=== PATIENT | female | born 1960 | race Caucasian/White ===

== ENCOUNTER 2022-06-02 00:45 | Inpatient (IN) | payer MEDICARE, OTHER ==
[~2022-06-02] VITALS: Ht 165.1 cm; Wt 63.5 kg
--- NOTE | 2022-06-02 01:00 | NUR ---
Dr. Motley at bedside for MSE.
--- NOTE | 2022-06-02 02:30 | NUR ---
Pt medically cleared by Dr. Motley.
[2022-06-02] MEDS ORDERED: POTASSIUM BICARBONATE/CIT AC 25 MEQ TABLET.EFF PO ONE (02:45)
[2022-06-02] MEDS ORDERED: POTASSIUM BICARBONATE/CIT AC 25 MEQ TABLET.EFF ONE (02:48)
--- NOTE | 2022-06-02 04:34 | NUR ---
Report given to [facility].
[2022-06-02] MEDS ORDERED: MAGNESIUM HYDROXIDE 30 ML LIQUID UDC PO PRN (05:15)
[2022-06-02] MEDS ORDERED: MAG HYDROX/AL HYDROX/SIMETH 30 ML LIQUID UDC PO PRN (05:15)
[2022-06-02] MEDS ORDERED: LORAZEPAM 1 MG TABLET PO PRN (05:15)
[2022-06-02] MEDS ORDERED: ACETAMINOPHEN 325 MG TABLET PO PRN (05:15)
[2022-06-02] MEDS ORDERED: TEMAZEPAM 7.5 MG CAPSULE PO PRN (05:15)
[2022-06-02 05:21] VITALS: BP 99/52
[2022-06-02] MEDS ORDERED: [UNRECOGNIZED DRUG - REMARK] (05:29)
--- NOTE | 2022-06-02 06:59 | NUR ---
Received to care, from the Emergency Room, on a 72 hour hold for gravely disabled. According to the hold, and ER physicians note, she is homeless. Was found at [employer] rambling and delusional, approaching a family and saying that the child was being kidnaped. She attempted to AWOL from police custody multiple times, and unable to say where she gets snf, or where she receives food. Upon face to face evaluation, she has poor insight into her condition, with no viable self care plan. Her speech was tangential, appears distracted by internal stimuli. Is hyper catholic, offering to pray for people and offer them salvation. Pt was advised of her hold, and given the patients rights handbook.
--- NOTE | 2022-06-02 09:26 | NUR ---
CHEST XRAY ORDERED STATUS "PRE ER" WHEN IN ER. WE ARE NOT ABLE TO SHOOT XRAYS UNDER "PRE ER" STATUS ORDERS. PATIENT NEEDED TO BE IN "REG ER" TO BE ABLE TO SHOOT XRAYS OR CTS. IF CHEST XRAY NEEDS TO BE DONE, REORDER. PATIENT IS ON FLOOR.
[2022-06-02 21:00] VITALS: BP 101/62
--- NOTE | 2022-06-02 22:01 | NUR ---
Dr Presley visited the patient; spoke with pt and new orders made; Patient REFUSED to sign consent for her Zyprexa.
[2022-06-03 05:06] VITALS: BP 102/52
--- NOTE | 2022-06-03 05:59 | NUR ---
Pt slept for 8.5 hrs; now awake and asking for coffee; needs attended; safety maintained
[2022-06-03] MEDS: OLANZAPINE 5 MG TABLET PO SCH ×3 (08:53→21:00)
--- NOTE | 2022-06-03 09:00 | NUR ---
Pt refused her Zyprexa explained the purpose of medication but pt continues to refuse med. Pt cooperative with care. Pt has good appetite. 1:1 sitter at bedside. noted right foot big toe sole discoloration. Encouraged pt to float patricia feet when able. Pt agreeable with plan of care. Call light is within reach
--- NOTE | 2022-06-03 14:36 | NUR ---
Pt is in no acute distress. Report given to Maira Noble. Pt is in no acute distress.
--- NOTE | 2022-06-03 16:05 | NUR ---
Received an overflow psych patient from third floor around 15:30. Patient report given by Eugene RN. Pt. is A/O X 3 to person, place. Pt. is cooperative with nursing care, talkative, argumentative about her 5150 status on GD "I need to see this doctor who is responsible for me to end up in a Psych unit. I don't belong here" Pt. holds ends today at 21:15, Dr. Presley is aware of it. Patient showered as soon as she got in the unit. Patient ambulates independently. Self care. Active listening provided. Fall and safety precautions implemented.
[2022-06-03 16:19] VITALS: BP 120/60
--- NOTE | 2022-06-03 17:04 | NUR ---
Pt. presents yazidism delusion, internal responding in the hallway while she walks and lift her arms up as she's praying.
[2022-06-03 19:54] VITALS: BP 126/62
[2022-06-04 08:13] VITALS: BP 116/57
[2022-06-04] MEDS: OLANZAPINE 5 MG TABLET PO SCH ×2 (08:49→21:00)
--- NOTE | 2022-06-04 11:35 | NUR ---
DELTA Initial Discharge Note: Pt does not have a current resident. Pt stated, she has been homeless for the past year. Pt also stated she has no family and no friends. Pt was agreeable to DELTA stating this television script writer will help the pt with placement upon discharge. DELTA will continue to work with pt and MD to ensure a safe and proper discharge plan.
--- NOTE | 2022-06-04 15:51 | NUR ---
Received patient is alert and oriented x4, pacing in the unit.argument about her 14 day hold believe she should be discharge home today. refused all po medication. responding to internal stimuli ,will continue close monitoring.
[2022-06-04 16:30] VITALS: BP 124/62
[2022-06-04 20:34] VITALS: BP 90/52
--- NOTE | 2022-06-05 06:14 | NUR ---
GPS: Remain calm and cvooperative with meds and care. Pt slept for 8 hrs through 6the night. resting in bed comfortably.
[2022-06-05 07:30] VITALS: BP 108/58
[2022-06-05] MEDS: OLANZAPINE 5 MG TABLET PO SCH ×2 (08:28→21:00)
--- NOTE | 2022-06-05 10:35 | NUR ---
Desi Adam faxed and follow up with court spoke with Daniela from court.
[2022-06-05 14:39] VITALS: BP 107/50
--- NOTE | 2022-06-05 17:53 | NUR ---
patient still continue refused all po medication, waiting for Riese hearing,patient still paranoia and delusional believe she is release today,pacing in the unit will continue close monitoring.
[2022-06-05 20:00] VITALS: BP 100/48
--- NOTE | 2022-06-05 20:30 | NUR ---
RECEIVED PATIENT IN HER ROOM IN BED. SHE WAS NOTED A/O X 3. SHE IS HYPERVERBAL. SHE CONTINUE DELUSIONAL AND PARANOID. PATIENT THINKS THAT SOMEONE IS OUT TO GET HER. SHE IS HAVING DELUSION OF PERSECUTION. SHE STATED, "I AM SAFE HERE, I AM SAFE HERE". SHE IS OBSERVED TALKING TO UNSEEN PEOPLE. HER SPEECH IS DISORGANIZED. SHE NEEDS CONSTANT REALITY CHECKS. HER V/S ARE STABLE. SHE WAS GIVEN PO FLUIDS AND SNACKS. WILL CONTINUE TO MONITOR.
--- NOTE | 2022-06-05 22:30 | NUR ---
PATIENT REFUSED ALL HER [facility] MEDICATIONS. SHE WAS INFORMED OF THE IMPORTANCE OF COMPLY WITH [facility] MEDICATION REGIMENT TO IMPROVED HER CONDITION YET REFUSED, SHE SAID, "I DON'T NEED MEDICATIONS, THERE IS NOTHING WRONG WITH ME. SHE IS NOTED WITH POOR INSIGHT AND JUDGMENT TO THE REASON FOR HER ADMISSION TO [facility]. PATIENT IS REASSURED FOR HER SAFETY. SAFETY AND FALL PRECAUTIONS IN PLACE. WILL CONTINUE TO MONITOR.
[2022-06-06 07:30] VITALS: BP 134/59
[2022-06-06] MEDS: OLANZAPINE 5 MG TABLET PO SCH ×2 (08:18→21:00)
--- NOTE | 2022-06-06 11:42 | NUR ---
WOUND CARE CONSULT: PT PRESENTS AMBULATORY AND CONTINENT WITH RESOLVED BLISTER ON PLANTAR FOOT, PRESENT ON ADMISSION. WILL SEE PRN.
[2022-06-06 16:00] VITALS: BP 108/52
--- NOTE | 2022-06-06 17:40 | NUR ---
Received patient awake in her room. A/O X 3 to person, place. Pt. is delusional about religious, internal responding, having AH and VH. Pt. states "I told you so. You never listen to me, do you?" "I know what I have to do, you don't have to tell me". Pt. refuses medications. Active listening provided. Fall and safety precautions implemented.
[2022-06-06 20:43] VITALS: BP 106/53
--- NOTE | 2022-06-07 03:45 | NUR ---
Received to care, isolative and guarded, pleasant upon approach. No interactions with peers. Continues to refuse any medications. Has been sleeping intermittently. Talking to self. Hyperreligious, stating that she has special winston from god. Is currently asleep. No distress noted.
[2022-06-07] MEDS: OLANZAPINE 5 MG TABLET PO SCH (09:00)
[2022-06-07] MEDS ORDERED: BENZTROPINE MESYLATE 2 MG/2 ML AMPUL IM PRN (17:30)
[2022-06-07 19:58] VITALS: BP 120/49
[2022-06-07] MEDS ORDERED: HALOPERIDOL LACTATE 5 MG/1 ML VIAL IM PRN (20:45)
[2022-06-07] MEDS: HALOPERIDOL 2 MG TABLET PO SCH (21:59)
--- NOTE | 2022-06-08 05:22 | NUR ---
Order received from Dr Presley to give IM Haldol, in addition to IM Cogentin, if Pt refuses PO Haldol. Order given to give first dose tonight. Pt continues to refuse all medications, so IM meds were given, per [employer] petition. She cooperated with shot, remained isolative, talking to self, but denying any psychotic sx, then requested PRN Ativan at 2249, and went to sleep. Continues to sleep well. No distress noted.
[2022-06-08 07:30] VITALS: BP 107/62
[2022-06-08] MEDS ORDERED: HALOPERIDOL 2 MG TABLET PO SCH ×2 (09:00→21:00)
[2022-06-08] MEDS: HALOPERIDOL 2 MG TABLET PO SCH ×3 (09:55→16:47)
--- NOTE | 2022-06-08 13:30 | NUR ---
Gps/Venetian Blind Maker- Had been compliant with her routine Haldol 2 mg. po, with min. prompting, patient, thinks she's supposed to take congentin po with it, informed will check with her Psychiatrist. Had been redirectable, ref. to attend her group tx.
[2022-06-08 16:15] VITALS: BP 101/45
[2022-06-08 20:00] VITALS: BP 111/55
--- NOTE | 2022-06-09 06:20 | NUR ---
This patient is on a Riese, but had no routine medications ordered last night. She remained withdrawn and isolative most of the shift. This real estate underwriter encouraged the patient to come out to the day room for snack. The patient came out of her room but turned right around and went back in. The patient is paranoid and has poor eye contact. This am the patient asked this real estate underwriter " Did you spit on me ? " again showing active paranoia. Safety Stratiges are in place and staff is monitoring the patients labile moods , paranoid delusions, medication compliance and for any behavior escalation.
[2022-06-09 07:39] VITALS: BP 100/61
[2022-06-09] MEDS: BENZTROPINE MESYLATE 1 MG TABLET PO SCH ×3 (08:32→16:15)
[2022-06-09] MEDS: HALOPERIDOL 2 MG TABLET PO SCH ×3 (08:32→16:15)
--- NOTE | 2022-06-09 09:51 | NUR ---
PT RECEIVED LYING IN BED RESTING COMFORTABLY. PT IS RIESED, BUT COMPLIANT WITH MEDICATIONS PO AT THIS TIME. NO AGGRESSIVE OR COMBATIVE BEHAVIOR NOTED AT THIS TIME. TOOK AT SHOWER AT THIS TIME. PARANOID/DELUSIONAL. RESPONDS TO INTERNAL STIMULI.
[2022-06-09 15:55] VITALS: BP 104/53
[2022-06-09 20:48] VITALS: BP 95/45
--- NOTE | 2022-06-10 03:34 | NUR ---
Patient received in the hill at the start of the shift. Patient would follow this mortgage or loan underwriter and interrupt when this mortgage or loan underwriter was speaking to another patient. Paranoid and hyperreligious thoughts were observed. The patient has poor impulse control and delusional thinking. No aggressive or combative behavior seen. No SI or HI noted. This mortgage or loan underwriter is unable to engage in any meaningful conversation with the patient d/t lack of situational awareness or insight. Safety Stratiges are in place. The patient paces up and down the hill at times, with a Bible in her hands, asking different people to read a passage for her. Redirection and reality based responses from the staff to the patient are met with argumentative overtones and ineffective at this time.
[2022-06-10 07:30] VITALS: BP 123/80
--- NOTE | 2022-06-10 08:00 | NUR ---
recd paTIENT IN HALLWAY WAITING FOR BREAKFAST . PATIENT IN APPROPIATE in her speech church medication compliant, participated in group with minimal interaction, continue to0 monitor for safety.
[2022-06-10] MEDS: BENZTROPINE MESYLATE 1 MG TABLET PO SCH ×3 (10:03→17:30)
[2022-06-10] MEDS: HALOPERIDOL 2 MG TABLET PO SCH ×3 (10:03→17:30)
[2022-06-10 15:26] VITALS: BP 117/52
--- NOTE | 2022-06-10 18:16 | NUR ---
patient with needy affect and nsuspicious mood reassured patient as needed, compliant with medication. continue to monitor for safety
[2022-06-10 23:17] VITALS: BP 102/42
--- NOTE | 2022-06-11 04:07 | NUR ---
GPS: Nursing Notes: Thought Disorder: Patient is awake and responding to her name, impaired judgment, believes that she is here by mistake, believes that the doctor has discharged her, "They lie about.. I am not suppose to be here..I am not sick... I am fine..", pacing her room, staff offer her sleeping medication PO PRN, but stated "No, I don't take pills... I am fine..", episodes of sitting on the floor in her room, redirected during shift, but resistant with nursing care, argumentative, unable to formulate a viable plan for self care, gets easily anxious and irritable when redirected, continue to monitor for safety, continue with treatment plan.
--- NOTE | 2022-06-11 06:42 | NUR ---
GPS: Nursing Notes: Sleeping Hours: Patient was able to sleep 2 hours and 30 minutes last night, staff offered her Restoril PO PRN several times , but patient refused the medication stated "I don't take pills.. I am fine..", continue to monitor for safety, continue with treatment plan.
--- NOTE | 2022-06-11 06:44 | NUR ---
GPS: Nursing Notes: Sleeping Hours: Patient was able to sleep 6 hours and 30 minutes, Restoril PO PRN given last night, continue to monitor for safety, continue with treatment plan.
[2022-06-11 07:41] VITALS: BP 109/49
[2022-06-11] MEDS: HALOPERIDOL 2 MG TABLET PO SCH ×3 (08:40→17:05)
[2022-06-11] MEDS: BENZTROPINE MESYLATE 1 MG TABLET PO SCH ×3 (08:40→17:05)
--- NOTE | 2022-06-11 10:15 | NUR ---
Firearms Report: Manager Telemetry completed and submitted a [employer] firearms report for 5150 grave disability certifications. A copy of report has been placed in patient chart.
--- NOTE | 2022-06-11 10:30 | NUR ---
GPS: RECEIVED PT ON BED. PT OBSERVED TALKING TO SELF. REALITY ORIENTATION MADE. ABLE TO MAKE NEEDS KNOWN. PT DENIES PAIN OR DISCOMFORT. COMPLIANT WITH MEDICATIONS THIS MORNING. ENCOURAGING TO PARTICIPATE MORE WITH GROUP ACTIVITIES.
[2022-06-11 16:16] VITALS: BP 88/47
--- NOTE | 2022-06-11 18:47 | NUR ---
GPS: PT SEEN PACING THE HALLWAY AND GOES TO ACTIVITY ROOM AND PARTICIPATED WITH GROUP THERAPY. PT ABLE TO MAKE CONVERSATION WITH OTHER PT. ABLE TO MAKE NEEDS KNOWN. PT PLEASANT WITH OTHERS AND STAFF. NO AGITATION NOTED THE WHOLE AFTERNOON. PT WITH LITTLE RESISTANT WITH TAKING THE MEDS THIS AFTERNOON. TRIED TO ENCOURAGE TO TAKE PO MEDS INSTEAD OF GETTING IM. PT CONSIDERED AND TOOK PO MEDS AFTER.
[2022-06-11 19:56] VITALS: BP 112/52
[2022-06-12 07:30] VITALS: BP 92/56
[2022-06-12] MEDS: BENZTROPINE MESYLATE 1 MG TABLET PO SCH ×3 (08:29→17:44)
[2022-06-12] MEDS: HALOPERIDOL 2 MG TABLET PO SCH ×3 (08:29→17:44)
--- NOTE | 2022-06-12 14:41 | NUR ---
GPS: Nursing Notes: Thought Disorder: Patient is awake and responding to her name, gets easily anxious when redirected, believes that she leaving today, paranoid behavior, believes that we are lying to her, stated "There is nothing wrong with me.. I am fine... I don not need to take pills...", loud and angry affect, argumentative, denies AH/VH, impaired judgment, unable to formulate a viable plan for self care, continue to monitor for safety, continue with treatment plan.
[2022-06-12 15:38] VITALS: BP 105/53
[2022-06-12 20:14] VITALS: BP 101/55
--- NOTE | 2022-06-12 20:30 | NUR ---
Received patient in the hallway. she is noted A/O x 2 to 3. she is noted hyperverbal and hyperreligious. She denied SI and HI but she stated that she hears voices. "I hears voices and one is form the rosalba spirit that tells me that we need to love each other and be good". patient is redirectable. Patient is somewhat better. Her V/S are stable, patient is in no distress. She was given PO fluids and snacks. She is reassured for her safety; safety and fall precautions are in place. will continue to monitor.
[2022-06-13 07:30] VITALS: BP 111/55
[2022-06-13] MEDS: BENZTROPINE MESYLATE 1 MG TABLET PO SCH ×4 (08:56→17:33)
[2022-06-13] MEDS: HALOPERIDOL 2 MG TABLET PO SCH ×4 (08:56→17:33)
--- NOTE | 2022-06-13 15:36 | NUR ---
Received patient awake in her room. A/O X 3 to person, place. Pt. is hyper anabaptism, suspicious about medications, paranoid. Pt states "God is watching you drugging patients for money. You should be ashamed of yourself" "I don't take medications more than twice a day, you're lying to me" "Can I pray for you?" "Do you believe in Ibrahima Stan as your savior?" Patient ambulates independently. Pt. is compliant with medications with lots of prompt. Self care. Active listening provided. Fall and safety precautions implemented.
[2022-06-13 16:00] VITALS: BP 100/56
[2022-06-13 20:00] VITALS: BP 107/43
[2022-06-14 07:30] VITALS: BP 101/47
[2022-06-14] MEDS: BENZTROPINE MESYLATE 1 MG TABLET PO SCH ×3 (08:48→16:58)
[2022-06-14] MEDS: HALOPERIDOL 2 MG TABLET PO SCH ×3 (08:49→16:58)
[2022-06-14 15:10] VITALS: BP 97/47
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
[2022-06-14 20:00] VITALS: BP 110/64
--- NOTE | 2022-06-14 21:00 | NUR ---
RECEIVED PATIENT IN HER ROOM IN BED. SHE IS NOTED AWAKE A/O X 3. HE IS NOTED SOMEWHAT BETTER. LESS PARANOID, LESS HYPER-DENOMINATIONAL. PATIENT NOTED PREOCCUPIED ABOUT HER INCOMING DISCHARGE FOR THIS UNIT. SHE STATED TO THIS ROSS CARRIER DRIVER, "I DON'T WANT TO GO THERE, I DON'T KNOW THAT PLACE. I WANT TO GO TO A PLACE THAT IS CLOSER TO MY HOME". PATIENT WAS REASSURED AND REDIRECTED. PATIENT IS ABLE TO COMPLY WITH MEDICATION REGIMENT DIET AND CARE. HER V/S ARE STABLE. SHE IS IN NO DISTRESS. SHE WAS GIVEN PO FLUIDS AND SNACKS, SHE IS REASSURED FOR HER SAFETY. SAFETY AND FALL PRECAUTION IN PLACE. WILL CONTINUE TO MONITOR,.
[2022-06-15 07:30] VITALS: BP 122/54
[2022-06-15] MEDS: BENZTROPINE MESYLATE 1 MG TABLET PO SCH (08:46)
[2022-06-15] MEDS: HALOPERIDOL 2 MG TABLET PO SCH (08:46)
--- NOTE | 2022-06-15 09:47 | NUR ---
DELTA Discharge Note: Pt will be discharged to [facility] via Ambulance transportation at 11AM. DELTA spoke with admin coordinator Anne ([phone]) at the facility who state they are ready to accept the patient today. Pt is aware and agreeable with discharge plans. Pt does not have any family contact. Pt is alert and oriented x4, is unable to plan for self-care at this time; however, is willing to accept care at SNF. Pt denies any suicidal or homicidal ideation. Pt will follow-up at the facility with Psychiatrist, Dr. Presley ([phone]) and [employer], Dr. Hou. Pt presents with calm mood and congruent affect. PHARMACY: [facility] ([phone]) [address] [place] [address].
--- NOTE | 2022-06-15 10:00 | NUR ---
Received patient awake in her room. A/O X 3 to person, place. Pt. is hyper mosque, suspicious, paranoid, excited to be discharged from hospital today. Pt states "Am I going to a better place?you're not lying to me?" Patient ambulates independently. Emotional support provided. Fall and safety precautions implemented.
--- NOTE | 2022-06-15 11:50 | NUR ---
Received orders to discharge this patient to [facility] by [facility]. Patient was agreeable with discharge plans. Patient refused to sign all discharge documents. Patient did not bring any belongings. Patient left the unit at 11:35. Fall and safety precautions implemented.
== END 2022-06-15 11:35 | DRG 885 ==
LOC: ER 01:10 → GPSOV3 03:20 → GPS 06-03 15:19
PROVIDERS: ADMIT Psychiatry & Neurology Psychiatry; ATTEND Nurse Practitioner Acute Care
DX: F29 Unspecified psychosis not due to a substance or known physiological condition (principal); F25.9 Schizoaffective disorder, unspecified; Z59.00 Homelessness unspecified; Z86.16 Personal history of COVID-19; F39 Unspecified mood [affective] disorder; F41.9 Anxiety disorder, unspecified; Z91.14 Patient's other noncompliance with medication regimen; Z20.822 Contact with and (suspected) exposure to COVID-19; Z73.6 Limitation of activities due to disability
CPT/HCPCS: 36415; 71045; 93005; A4663; J0515; J1630; U0003